=== PATIENT | male | born 1960 | race Caucasian/White ===

== ENCOUNTER → 2021-03-04 | Outpatient (CLI) | payer OTHER ==
--- NOTE | 2021-03-04 11:24 | RAD ---
EXAM: Chest, 2 views. HISTORY: Chest pain. COMPARISON: 11/24/2014 FINDINGS: 2 views of the chest are obtained. There is right greater than left lower lobe, lingular an d right middle lobe infiltrate with suspected partial right lower lobe consolidation. There is no ple ural effusion or pneumothorax. There is a stable cardiac silhouette. IMPRESSION: Bilateral lower lobe, right middle lobe and lingular interstitial infiltrate with partial right lower lobe consolidation. Follow-up to confirm resolution. Electronically signed by: Mari Mares MD (03/04/2021 11:21 AM) [id number]
== END ==
LOC: DXRAD 10:55
PROVIDERS: ATTEND Physician Assistant Medical
DX: R91.8 Other nonspecific abnormal finding of lung field (principal); R07.9 Chest pain, unspecified; R06.02 Shortness of breath
CPT/HCPCS: 71046